=== PATIENT | male | born 1970 | race Caucasian/White ===

== ENCOUNTER 2022-05-26 20:47 | Observation (INO) ==
[2022-05-26] MEDS ORDERED: Iopamidol - 370 500 ML MLS IVP ONE (21:31)
[2022-05-26 21:44] LABS: Immature Granulocytes % 0.2 % (0-4)
[2022-05-26 21:46] LABS: Basophils % 0.4 %; Immature Platelets 5.4 % (1.1-6.1)
[2022-05-26 21:54] LABS: Eosinophils # 0.1 K/mcL (0.0-0.6); Eosinophils % 2.4 %; Hematocrit 35.9 % (37.5-50.1); Hemoglobin 12.2 g/dL (12.9-16.9); Lymphocytes # 1.8 K/mcL (0.6-4.6); Lymphocytes % 35.9 %; Mean Corpuscular Hemoglobin 30.4 pg (28.0-33.3); Mean Corpuscular Volume 89.5 fL (83.0-100.0); Mean Platelet Volume 11.1 fL (9.4-12.4); Monocytes # 0.5 K/mcL (0.0-1.3); Monocytes % 10.3 %; Neutrophils # 2.5 K/mcL (1.6-8.9); Platelet Count 100 K/mcL (140-400); Red Blood Count 4.01 M/mcL (4.19-5.50); Red Cell Distribution Width 14.5 % (11.5-14.5); Segmented Neutrophils % 50.8 %
[2022-05-26 22:09] LABS: BUN/Creatinine Ratio 10 (6-26); Blood Urea Nitrogen 10 mg/dL (6-20); Calcium 8.5 mg/dL (8.6-10.3); Carbon Dioxide 27 mEq/L (23-29); Chloride 106 mEq/L (98-107); Glucose 131 mg/dL (70-105); Osmolality,Calculated 285 (280-300); Sodium 137 mEq/L (136-145); Troponin I < 0.03 ng/mL (< 0.04)
[2022-05-26 22:30] LABS: Platelet Estimate Slight Decrease (Normal)
[2022-05-26] MEDS ORDERED: Aspirin 81 MG TAB.CHEW PO ONE (23:38)
[2022-05-26] MEDS ORDERED: Ondansetron ODT 4 MG TAB.RAPDIS SL PRN (23:46)
[2022-05-26] MEDS ORDERED: Melatonin 3 MG TABLET PO PRN (23:46)
[2022-05-26] MEDS ORDERED: Naloxone 0.4 MG/ML INJ IVP PRN (23:46)
[2022-05-26 23:54] LABS: Bilirubin,Urine Negative (Negative); Blood,Urine Negative (Negative); Clarity,Urine Clear (Clear); Color,Urine Yellow (Yellow); Glucose,Urine (UA) Normal (Normal); Ketones,Urine Negative (Negative); Leukocyte Esterase,Urine Negative (Negative); Nitrite,Urine Negative (Negative); Protein,Urine Negative (Neg-Trace); Specific Gravity,Urine 1.029 (1.010-1.025)
[2022-05-27 00:06] LABS: Amphetamine Screen,Urine Negative ng/mL (Cutoff=1000); Barbiturate Screen,Urine Negative ng/mL (Cutoff=200); Benzodiazepines Screen,Urine Positive ng/mL (Cutoff=200); Cannabinoid Screen,Urine Negative ng/mL (Cutoff = 50); Cocaine Screen,Urine Negative ng/mL (Cutoff= 300); Opiate Screen,Urine Positive ng/mL (Cutoff=300); Phencyclidine Screen,Urine Negative ng/mL (Cutoff=25)
[2022-05-27 03:22] LABS: Mean Corpuscular Volume 88.7 fL (83.0-100.0)
[2022-05-27 03:24] LABS: Hematocrit 33.1 % (37.5-50.1); Hemoglobin 11.6 g/dL (12.9-16.9); Immature Platelets 4.9 % (1.1-6.1); Mean Corpuscular Hemoglobin 31.1 pg (28.0-33.3); Red Blood Count 3.73 M/mcL (4.19-5.50); Red Cell Distribution Width 14.3 % (11.5-14.5); White Blood Count 4.4 K/mcL (4.3-11.1)
[2022-05-27 03:31] LABS: Estimated Average Glucose 100 mg/dl; Hemoglobin A1C 5.1 %
[2022-05-27 03:34] LABS: Adenovirus Not Detected (Not Detect); Bordetella Pertussis Not Detected (Not Detect); Chlamydophila pneumoniae Not Detected (Not Detect); Coronavirus 229E Not Detected (Not Detect); Coronavirus HKU1 Not Detected (Not Detect); Coronavirus NL63 Not Detected (Not Detect); Coronavirus OC43 Not Detected (Not Detect); Human Metapneumovirus Not Detected (Not Detect); Human Rhinovirus/Enterovirus Not Detected (Not Detect); Influenza A Subtype 2009 H1 Not Detected (Not Detect); Influenza B Not Detected (Not Detect); Mycoplasma pneumoniae Not Detected (Not Detect); Parainfluenza Virus 1 Not Detected (Not Detect); Parainfluenza Virus 2 Not Detected (Not Detect); Parainfluenza Virus 3 Not Detected (Not Detect); Parainfluenza Virus 4 Not Detected (Not Detect); Respiratory Syncytial Virus Not Detected (Not Detect); SARS-CoV-2 Not Detected (Not Detect)
[2022-05-27 03:47] LABS: INR 1.4; Prothrombin Time 15.7 Seconds (9.4-12.1)
[2022-05-27 03:57] LABS: Alanine Aminotransferase 19 Units/L (7-52); Albumin/Globulin Ratio 0.8 (1.1-2.2); Alkaline Phosphatase 84 Units/L (34-104); Aspartate Amino Transferase 28 Units/L (13-39); BUN/Creatinine Ratio 11 (6-26); Bilirubin,Total 1.6 mg/dL (0.3-1.0); Blood Urea Nitrogen 10 mg/dL (6-20); Calcium 8.4 mg/dL (8.6-10.3); Carbon Dioxide 24 mEq/L (23-29); Chloride 107 mEq/L (98-107); Chol/HDL Ratio 2.3 (0-4.9); Cholesterol 77 mg/dL (< 200); Globulin 3.8 g/dL (2.4-3.5); Glucose 96 mg/dL (70-105); HDL Cholesterol 34 mg/dL (40-59); LDL Cholesterol,Calculated 30 mg/dL (< 100); Osmolality,Calculated 283 (280-300); Potassium 3.6 mEq/L (3.5-5.1); Sodium 137 mEq/L (136-145); Total Protein 6.8 g/dL (6.4-8.9); Triglycerides 65 mg/dL (< 150); Troponin I < 0.03 ng/mL (< 0.04)
[2022-05-27 04:07] LABS: Ethanol < 10 mg/dL (Less than 10); Magnesium 1.6 mg/dL (1.6-2.6); Phosphorous 3.1 mg/dL (2.7-4.5)
[2022-05-27 04:09] LABS: Thyroid Stimulating Hormone 0.894 mcIU/mL (0.340-5.600)
[2022-05-27 04:20] LABS: Folate 7.8 ng/mL (3.0-16.0)
[2022-05-27] MEDS: Aspirin Enteric Coated 81 MG Tablet PO SCH (09:18)
[2022-05-27 14:00] LABS: Bilirubin,Urine Negative (Negative); Blood,Urine Negative (Negative); Clarity,Urine Clear (Clear); Color,Urine Yellow (Yellow); Glucose,Urine (UA) Normal (Normal); Ketones,Urine Negative (Negative); Leukocyte Esterase,Urine Negative (Negative); Nitrite,Urine Negative (Negative); PH,Urine 6.5 pH Units (5.0-8.0); Protein,Urine Negative (Neg-Trace); Specific Gravity,Urine 1.013 (1.010-1.025)
[2022-05-28] MEDS ORDERED: *HR* Enoxaparin 40 MG/0.4 ML SYRINGE SQ SCH (06:00)
[2022-05-28 06:43] VITALS: BP 101/64; PULSE 52; TEMP 97.8; O2SAT 95
[2022-05-28] MEDS ORDERED: Cyanocobalamin (B-12) 1,000 MCG/ML VIAL SQ ONE (08:09)
[2022-05-28] MEDS: Aspirin Enteric Coated 81 MG Tablet PO SCH (08:52)
[2022-05-28] MEDS ORDERED: FLUoxetine 20 MG CAPSULE PO SCH (09:00)
[2022-05-28] MEDS ORDERED: ARMODAFINIL 150 MG PO SCH (09:00)
== END 2022-05-28 10:52 | disposition home or self-care (01) ==
LOC: EMEROOARM 20:47 → 3BNU 20:47 → SUATTDRO 23:50 → 3BNU 05-27 00:57
PROVIDERS: ADMIT Internal Medicine; ATTEND Internal Medicine